=== PATIENT | female | born 1950 | race Caucasian/White ===

== ENCOUNTER 2017-08-04 03:46 | Emergency (ER) | payer OTHER ==
[~2017-08-04] VITALS: Ht 165.1 cm; Wt 56.7 kg
--- NOTE | 2017-08-04 03:46 | NUR ---
PT BIBA BLS TO ER BED 04
[2017-08-04 03:58] VITALS: BP 116/92
--- NOTE | 2017-08-04 04:03 | NUR ---
PATIENT PRESENTS TO ED BIBA D/T COMBATIVE BEHAVIOR AND ALTERED MENTAL STATUS AT NURSING FACILITY. PT DENIES N/V/D; SKIN IS PINK/WARM/DRY; AAOX4 WITH EVEN AND STEADY GAIT; LUNGS CLEAR BL; HR EVEN AND REGULAR; PT DENIES ANY FEVER, CP, SOB, OR COUGH AT THIS TIME; PATIENT STATES PAIN OF 0/10 AT THIS TIME; VSS; PATIENT POSITIONED FOR COMFORT; HOB ELEVATED; BEDRAILS UP X2; BED DOWN. ER MD MADE AWARE OF PT STATUS.
--- NOTE | 2017-08-04 04:38 | NUR ---
CALLED RICARDO FROM [facility]. RICARDO STATES THEY DO NOT PROVIDE TRANSPORT BACK TO FACILITY. WILL SET UP TRANSFER
--- NOTE | 2017-08-04 05:26 | NUR ---
CALLED [facility] FOR TRANSPORT, KATE STATES ETA WILL BE [phone]
--- NOTE | 2017-08-04 07:19 | NUR ---
Patient discharged with v/s stable. Written and verbal after care instructions given and explained. Patient verbalized understanding. Wheel Chair Assisted with [facility] to detention. All questions addressed prior to discharge. Advised to follow up with PMD.
[2017-08-04 07:20] VITALS: BP 116/92
== END 2017-08-04 07:19 ==
LOC: MED 03:46
DX: F03.90 Unspecified dementia, unspecified severity, without behavioral disturbance, psychotic disturbance, mood disturbance, and anxiety (principal); R41.82 Altered mental status, unspecified; I10 Essential (primary) hypertension; E78.5 Hyperlipidemia, unspecified
CPT/HCPCS: 81002; 99283; 99284; 99285

== ENCOUNTER 2019-03-02 21:15 | Emergency (ER) | payer OTHER ==
[~2019-03-02] VITALS: Ht 165.1 cm; Wt 79.2 kg
[2019-03-02 21:15] VITALS: BP 148/81
--- NOTE | 2019-03-02 21:15 | NUR ---
TO BED # 11 AMBULATORY
--- NOTE | 2019-03-02 21:25 | NUR ---
68 YO F BIB SON FOR HIGH BLOOD PRESSURE. SON STATES HE TAKES HER BP EVERY DAY AND AT 1900 IT WAS 189/121. HE CHECKED AGAIN AT 2100 AND IT WAS 182/126. SON STATES SHE WAS NOT C/O OF ANY SYMPTOMS LIKE DINERO, WEAKNESS, BLURRY VISION, N/V, SOB OR CP. SON STATES PT HAS DEMENTIA AND PARKINSON'S SO SHE REQUIRES HIS CARE AND ASSISTANCE AT HOME. DENIES HX OF HTN. PT IS SITTING QUIETLY IN BED. CALM, COOPERATIVE. APPEARS COMFORTABLE. DENIES PAIN OF ANY KIND AT THIS TIME. BP IN TRIAGE 148/81.
--- NOTE | 2019-03-02 21:31 | NUR ---
DR. RON COELLO AT [facility].
[2019-03-02 21:50] VITALS: BP 148/81
--- NOTE | 2019-03-02 21:50 | NUR ---
Patient discharged with v/s stable. Written and verbal after care instructions given and explained. Patient alert, oriented and verbalized understanding of instructions. Ambulatory with steady gait. All questions addressed prior to discharge. ID band removed. Patient advised to follow up with PMD. Rx of Lisinopril given. Patient educated on indication of medication including possible reaction and side effects. Opportunity to ask questions provided and answered.
== END 2019-03-02 21:50 | disposition home or self-care (01) ==
LOC: MED 21:15
DX: I10 Essential (primary) hypertension (principal); F03.90 Unspecified dementia, unspecified severity, without behavioral disturbance, psychotic disturbance, mood disturbance, and anxiety; E78.5 Hyperlipidemia, unspecified
CPT/HCPCS: 99283